=== PATIENT | female | born 1950 | race Caucasian/White ===

== ENCOUNTER → 2016-05-28 | Outpatient (REF) | payer BC ==
[~2016-05-28] MED LIST: AMBI10TA PO; CENTTAB PO; COUM2.5T11 PO; Calcium + Vit D PO; ESTRGEL TOP; IMIT100T PO; Krill Oil PO; Lactaid PO; OSTETAB3 PO; PROBCAP4 PO; TYLE650T30 PO; ULTR50TA PO; VITATAB73 PO; ZOFR4SOL PO
[2016-05-28 18:12] LABS: ALBUMIN 3.9 GM/DL (3.2-5.2); ALBUMIN/GLOBULIN RATIO 1.18 (1.00-1.93); ALKALINE PHOSPHATASE 72 U/L (45-117); ALT/SGPT 23 U/L (12-78); AMYLASE 55 U/L (25-115); ANION GAP 6 MEQ/L (8-16); AST/SGOT 22 U/L (15-37); BILIRUBIN,TOTAL 0.3 MG/DL (0.2-1.0); BLOOD UREA NITROGEN 17 MG/DL (7-18); CARBON DIOXIDE LEVEL 30 MEQ/L (21-32); CHLORIDE LEVEL 105 MEQ/L (98-107); CREATININE FOR GFR 0.73 MG/DL (0.55-1.02); GLOMERULAR FILTRATION RATE > 60.0 (>45); GLUCOSE, FASTING 84 MG/DL (80-110); POTASSIUM SERUM 3.9 MEQ/L (3.5-5.1); SODIUM LEVEL 141 MEQ/L (136-145); TOTAL PROTEIN 7.2 GM/DL (6.4-8.2)
[2016-05-28 19:19] LABS: BASO % 0.3 % (0.0-1.0); EOS # 0.8 K/mm3 (0.0-0.50); EOS % 10.5 % (0.0-3.0); LARGE UNSTAINED CELL # 0.2 K/mm3 (0.0-0.4); LARGE UNSTAINED CELL % 2.2 % (0.0-4.0); LYMPH # 1.9 K/mm3 (1.5-4.5); MEAN CORPUSCULAR HEMOGLOBIN 29.5 pg (27.0-33.0); MEAN CORPUSCULAR HGB CONC 33.4 g/dl (32.0-36.5); MEAN CORPUSCULAR VOLUME 88.5 fl (80.0-96.0); MONO # 0.6 K/mm3 (0.0-0.8); MONO % 7.5 % (0.0-5.0); NEUTROPHILS # 4.1 K/mm3 (1.8-7.7); NEUTROPHILS % 55.5 % (36.0-66.0); PLATELET COUNT, AUTOMATED 273 k/mm3 (150-450); RED CELL DISTRIBUTION WIDTH 12.5 % (11.5-14.5); WHITE BLOOD COUNT 7.4 K/mm3 (4.0-10.0)
== END ==
LOC: M LABDRAW1 17:01
PROVIDERS: ATTEND Emergency Medicine
DX: R10.11 Right upper quadrant pain (principal)

== ENCOUNTER → 2016-06-03 | Outpatient (REF) | payer BC ==
[2016-06-03 11:26] LABS: ALBUMIN 3.5 GM/DL (3.2-5.2); ALBUMIN/GLOBULIN RATIO 1.09 (1.00-1.93); ALKALINE PHOSPHATASE 66 U/L (45-117); ALT/SGPT 23 U/L (12-78); ANION GAP 4 MEQ/L (8-16); AST/SGOT 21 U/L (15-37); BILIRUBIN,TOTAL 0.4 MG/DL (0.2-1.0); BLOOD UREA NITROGEN 18 MG/DL (7-18); CALCIUM LEVEL 8.4 MG/DL (8.8-10.2); CARBON DIOXIDE LEVEL 31 MEQ/L (21-32); CHLORIDE LEVEL 105 MEQ/L (98-107); CHOLESTEROL LEVEL 154 MG/DL (<200); CREATININE FOR GFR 0.78 MG/DL (0.55-1.02); GLOMERULAR FILTRATION RATE > 60.0 (>45); GLUCOSE, FASTING 80 MG/DL (80-110); SODIUM LEVEL 140 MEQ/L (136-145); TOTAL PROTEIN 6.7 GM/DL (6.4-8.2); TRIGLYCERIDES LEVEL 29 MG/DL (<150)
== END ==
LOC: M LABDRAW1 10:37
PROVIDERS: ATTEND Emergency Medicine
DX: Z00.00 Encounter for general adult medical examination without abnormal findings (principal); K58.9 Irritable bowel syndrome, unspecified

== ENCOUNTER → 2016-07-28 | Outpatient (CLI) | payer BC ==
[~2016-07-28] MED LIST changes: +KRIL1CAP6 PO; +PEPCCHW3 PO
--- NOTE | 2016-07-28 10:25 | REP ---
Hepatobiliary scan and gallbladder ejection fraction: History: Right upper quadrant pain. Technique: 6.1 mCi of technetium-99m mebrofenin was injected and sequential anterior images are acquired. 65 minutes after the mebrofenin injection, the patient consumed 8 ounces Ensure and an additional 60 minutes of imaging was acquired. Regions of interest are plotted around the gallbladder. Findings: The initial hepatocellular parenchymal uptake phase is normal and homogeneous. Intra- and extra-hepatic bile ducts and duodenum are labeled by the 10 -minute image. The gallbladder is first labeled on the 15 -minute image. There is normal washout from the liver parenchyma into the gallbladder and small intestine on subsequent images. The gallbladder ejection fraction is 87 %. Values greater than 35 % are considered normal with this technique. Impression: Normal hepatobiliary scan and normal gallbladder ejection fraction. Signed by Solis Meléndez MD 07/28/2016 10:16 A
== END ==
LOC: M RAD 07:36
PROVIDERS: ATTEND Surgery
DX: R10.11 Right upper quadrant pain (principal)

== ENCOUNTER 2016-10-14 07:34 | Outpatient (CLI) | payer BC ==
[~2016-10-14] VITALS: Ht 147.3 cm; Wt 49.9 kg
[~2016-10-14 07:34] MED LIST changes: -COUM2.5T11 PO; +COUM2.5T17 PO; +FISH1000 PO; +LINZ290C PO; +MIRA3350 PO; +NS 1,000 ML IV SCH; -ULTR50TA PO; +ULTR50TA8 PO
[2016-10-14] MEDS ORDERED: PROPOFOL 500 MG/50 ML VIAL As Ordered ONE (07:58)
[2016-10-14] MEDS ORDERED: LIDOCAINE 2% INJ 100 MG/5 ML SDV (FOR ANES.) As Ordered ONE (08:25)
[2016-10-14] MEDS ORDERED: ONDANSETRON 4MG/2ML VIAL (J2405) As Ordered ONE (08:25)
[2016-10-14] MEDS ORDERED: PHENYLephrine HCL 500 MCG/5 ML (100MCG/ML) SYRINGE (J2370) As Ordered ONE (08:31)
--- NOTE | 2016-10-14 09:16 | ROOR ---
Patient Name: Nighat Turner Procedure Date: 10/14/2016 8:15 AM Date of : 1950 Age: 66 Room: [facility] Gender: Female Note Status: Finalized Procedure: Upper GI endoscopy Indications: Epigastric abdominal pain Providers: Shawn Davalos MD Referring MD: JAILYN ORTIZ MD Requesting Provider: Medicines: Monitored Anesthesia Care Complications: No immediate complications. Procedure: Pre-Anesthesia Assessment: - Prior to the procedure, a History and Physical was performed, and patient medications and allergies were reviewed. The patient is competent. The risks and benefits of the procedure and the sedation options and risks were discussed with the patient. All questions were answered and informed consent was obtained. Patient identification and proposed procedure were verified by the physician, the nurse and the vending machine filler in the procedure room. Mental Status Examination: alert and oriented. Airway Examination: normal oropharyngeal airway and neck mobility. Respiratory Examination: clear to auscultation. CV Examination: normal. Prophylactic Antibiotics: The patient does not require prophylactic antibiotics. Prior Anticoagulants: The patient has taken no previous anticoagulant or antiplatelet agents. ASA Grade Assessment: II - A patient with mild systemic disease. After reviewing the risks and benefits, the patient was deemed in satisfactory condition to undergo the procedure. The anesthesia plan was to use monitored anesthesia care (MAC). Immediately prior to administration of medications, the patient was re-assessed for adequacy to receive sedatives. The heart rate, respiratory rate, oxygen saturations, blood pressure, adequacy of pulmonary ventilation, and response to care were monitored throughout the procedure. The physical status of the patient was re-assessed after the procedure. The Endoscope was introduced through the mouth, and advanced to the second part of duodenum. The upper GI endoscopy was accomplished without difficulty. The patient tolerated the procedure fairly well. Findings: A small hiatal hernia was present. Estimated blood loss: none. The Z-line was regular and was found 39 cm from the incisors. The [Site] was normal. Striped mildly erythematous mucosa without bleeding was found in the prepyloric region of the stomach. Biopsies were taken with a cold forceps for Helicobacter pylori testing. Estimated blood loss was minimal. Impression: - Small hiatal hernia. - Z-line regular, 39 cm from the incisors. - Normal [Site]. - Erythematous mucosa in the prepyloric region of the stomach. Biopsied. Recommendation: - Discharge patient to home (ambulatory). - Continue present medications. Shawn Davalos MD Shawn Davalos MD 10/14/2016 9:16:08 AM This report has been signed electronically. Number of Addenda: 0 Note Initiated On: 10/14/2016 8:15 AM Estimated Blood Loss: Estimated blood loss was minimal.
--- NOTE | 2016-10-14 09:20 | ROOR ---
Patient Name: Nighat Turner Procedure Date: 10/14/2016 8:16 AM Date of : 1950 Age: 66 Room: [facility] Gender: Female Note Status: Finalized Procedure: Colonoscopy Indications: Epigastric abdominal pain, Constipation Providers: Shawn Davalos MD Referring MD: JAILYN ORTIZ MD Requesting Provider: Medicines: Monitored Anesthesia Care Complications: No immediate complications. Procedure: Pre-Anesthesia Assessment: - Prior to the procedure, a History and Physical was performed, and patient medications and allergies were reviewed. The patient is competent. The risks and benefits of the procedure and the sedation options and risks were discussed with the patient. All questions were answered and informed consent was obtained. Patient identification and proposed procedure were verified by the physician, the nurse and the typing section chief in the procedure room. Mental Status Examination: alert and oriented. Airway Examination: normal oropharyngeal airway and neck mobility. Respiratory Examination: clear to auscultation. CV Examination: normal. Prophylactic Antibiotics: The patient does not require prophylactic antibiotics. Prior Anticoagulants: The patient has taken no previous anticoagulant or antiplatelet agents. ASA Grade Assessment: II - A patient with mild systemic disease. After reviewing the risks and benefits, the patient was deemed in satisfactory condition to undergo the procedure. The anesthesia plan was to use monitored anesthesia care (MAC). Immediately prior to administration of medications, the patient was re-assessed for adequacy to receive sedatives. The heart rate, respiratory rate, oxygen saturations, blood pressure, adequacy of pulmonary ventilation, and response to care were monitored throughout the procedure. The physical status of the patient was re-assessed after the procedure. The Colonoscope was introduced through the anus and advanced to the hepatic flexure. The colonoscopy was technically difficult and complex due to poor bowel prep, significant looping and a tortuous colon. Successful completion of the procedure was aided by changing the patient to a supine position, using manual pressure, withdrawing and reinserting the scope and straightening and shortening the scope to obtain bowel loop reduction. The patient tolerated the procedure fairly well. The quality of the bowel preparation was fair. Findings: The perianal exam findings include non-thrombosed external hemorrhoids. The transverse colon revealed moderately excessive looping. Normal mucosa was found in the entire colon. No additional abnormalities were found on retroflexion. Impression: - Preparation of the colon was fair. - Non-thrombosed external hemorrhoids found on perianal exam. - There was significant looping of the colon. - Normal mucosa in the entire examined colon. - No specimens collected. Recommendation: - Discharge patient to home (ambulatory). Shawn Davalos MD Shawn Davalos MD 10/14/2016 9:20:10 AM This report has been signed electronically. Number of Addenda: 0 Note Initiated On: 10/14/2016 8:16 AM Estimated Blood Loss: Estimated blood loss: none.
[2016-10-14 09:49] VITALS: BP 108/71
== END 2016-10-14 09:51 | disposition home or self-care (01) ==
LOC: M OPP 07:34
PROVIDERS: ATTEND Surgery
DX: R19.4 Change in bowel habit (principal); K59.00 Constipation, unspecified; K64.4 Residual hemorrhoidal skin tags; Q43.8 Other specified congenital malformations of intestine; R10.11 Right upper quadrant pain; R10.13 Epigastric pain; R14.0 Abdominal distension (gaseous); K44.9 Diaphragmatic hernia without obstruction or gangrene; K31.89 Other diseases of stomach and duodenum; K58.9 Irritable bowel syndrome, unspecified; M19.90 Unspecified osteoarthritis, unspecified site; R11.10 Vomiting, unspecified; M25.60 Stiffness of unspecified joint, not elsewhere classified; G43.909 Migraine, unspecified, not intractable, without status migrainosus; I25.10 Atherosclerotic heart disease of native coronary artery without angina pectoris; F41.9 Anxiety disorder, unspecified; F32.9 Major depressive disorder, single episode, unspecified; Z87.891 Personal history of nicotine dependence; Z88.1 Allergy status to other antibiotic agents; Z91.011 Allergy to milk products; Z88.0 Allergy status to penicillin; Z79.899 Other long term (current) drug therapy; Z80.0 Family history of malignant neoplasm of digestive organs; Z80.41 Family history of malignant neoplasm of ovary; Z80.1 Family history of malignant neoplasm of trachea, bronchus and lung; Z80.8 Family history of malignant neoplasm of other organs or systems
CPT/HCPCS: 43239; 45378; 88305; J2370; J2405

== ENCOUNTER → 2018-12-07 | Outpatient (REF) | payer BC ==
[~2018-12-07] MED LIST changes: -NS 1,000 ML IV SCH
[2018-12-07 12:58] LABS: BASO # 0.1 10^3/uL (0.0-0.2); BASO % 1.2 % (0.0-1.0); EOS # 0.5 10^3/uL (0.0-0.5); EOS % 8.6 % (0.0-3.0); HEMOGLOBIN 13.1 g/dl (12.0-15.5); LYMPH # 1.2 10^3/uL (1.5-5.0); MEAN CORPUSCULAR HGB CONC 32.8 g/dl (32.0-36.5); MEAN CORPUSCULAR VOLUME 91.7 fl (80.0-96.0); MONO # 0.9 10^3/uL (0.0-0.8); MONO % 15.2 % (0.0-5.0); NEUTROPHILS # 3.4 10^3/uL (1.5-8.5); NEUTROPHILS % 55.8 % (36.0-66.0); PLATELET COUNT, AUTOMATED 247 10^3/uL (150-450); RED BLOOD COUNT 4.36 10^6/uL (4.00-5.40); WHITE BLOOD COUNT 6.1 10^3/uL (4.0-10.0)
[2018-12-07 13:25] LABS: ALBUMIN 3.4 GM/DL (3.2-5.2); ALT/SGPT 132 U/L (12-78); BILIRUBIN,TOTAL 0.3 MG/DL (0.2-1.0); BLOOD UREA NITROGEN 14 MG/DL (7-18); CALCIUM LEVEL 8.8 MG/DL (8.8-10.2); CARBON DIOXIDE LEVEL 29 MEQ/L (21-32); CHLORIDE LEVEL 103 MEQ/L (98-107); CHOLESTEROL LEVEL 154 MG/DL (<200); CHOLESTEROL RISK RATIO 1.974 (<5); CREATININE FOR GFR 0.76 MG/DL (0.55-1.30); FREE T4 1.14 NG/DL (0.76-1.46); GLOMERULAR FILTRATION RATE > 60.0 (>45); GLUCOSE, FASTING 84 MG/DL (70-100); HDL CHOLESTEROL 78 MG/DL (>40); LDL CHOLESTEROL 67 MG/DL (<100); NON-HDL-C 76 MG/DL; POTASSIUM SERUM 4.1 MEQ/L (3.5-5.1); SODIUM LEVEL 140 MEQ/L (136-145); TOTAL 25(OH) VITAMIN D 55.1 NG/ML (30.0-100.0); TRIGLYCERIDES LEVEL 47 MG/DL (<150)
== END ==
LOC: M LABDRAW1 11:59
PROVIDERS: ATTEND Physician Assistant
DX: E78.2 Mixed hyperlipidemia (principal); E03.9 Hypothyroidism, unspecified; E55.9 Vitamin D deficiency, unspecified

== ENCOUNTER → 2019-09-07 | Outpatient (CLI) | payer BC ==
[2019-09-07 17:54] LABS: BASO # 0.1 10^3/uL (0.0-0.2); BASO % 0.9 % (0.0-1.0); EOS # 0.2 10^3/uL (0.0-0.5); EOS % 3.1 % (0.0-3.0); HEMATOCRIT 40.3 % (36.0-47.0); HEMOGLOBIN 13.2 g/dl (12.0-15.5); LYMPH % 29.7 % (24.0-44.0); MEAN CORPUSCULAR HEMOGLOBIN 29.2 pg (27.0-33.0); MEAN CORPUSCULAR HGB CONC 32.8 g/dl (32.0-36.5); MEAN CORPUSCULAR VOLUME 89.2 fl (80.0-96.0); MONO # 0.8 10^3/uL (0.0-0.8); MONO % 11.6 % (0.0-5.0); NEUTROPHILS # 3.7 10^3/uL (1.5-8.5); NEUTROPHILS % 54.6 % (36.0-66.0); PLATELET COUNT, AUTOMATED 280 10^3/uL (150-450); RED BLOOD COUNT 4.52 10^6/uL (4.00-5.40); WHITE BLOOD COUNT 6.7 10^3/uL (4.0-10.0)
[2019-09-07 18:08] LABS: C REACTIVE PROTEIN QUANTITATIV < 0.30 MG/DL (0.00-0.30); URIC ACID 3.8 MG/DL (2.6-6.0)
[2019-09-07 20:22] LABS: ERYTHROCYTE SEDIMENTATION RATE 16 mm/hr (0-30)
== END ==
LOC: M PLALAB 15:23
PROVIDERS: ATTEND Physician Assistant
DX: M25.561 Pain in right knee (principal)

== ENCOUNTER → 2019-10-17 | Outpatient (REF) | payer BC ==
[~2019-10-17] MED LIST changes: +ESTR0.059 TD; +PANT40TA29 PO
== END ==
LOC: M LAB REF 11:20
PROVIDERS: ATTEND Orthopaedic Surgery
DX: M67.441 Ganglion, right hand (principal)

== ENCOUNTER → 2019-11-15 | Outpatient (CLI) | payer OTHER ==
--- NOTE | 2019-12-12 07:12 | REP ---
TRIPLE PHASE BONE SCAN OF THE KNEES HISTORY: Rule out loosening of knee prosthesis. TECHNIQUE: Following the intravenous administration of 21.9 mCi Technetium-99m MDP, the patients knees are imaged in the flow phase in the anterior and posterior projections. FINDINGS: There is symmetrical blood flow. Immediate blood pool on three hour delayed images are performed in various projections. Photopenic knee prosthesis is noted on the right. There is mild increased blood pooling at the interface between the prosthesis and adjacent bone. There is also increased delayed osseous uptake in the distal end of the right femur and proximal end of the right tibia at the interface between the metallic prosthesis components and upper [place] bone. No abnormal uptake is seen involving the left knee. IMPRESSION: Increased activity in the osseous structures adjacent to the right knee prosthesis could indicate some degree of loosening. MTDD
== END ==
LOC: M RAD 10:38
PROVIDERS: ATTEND Physician Assistant
DX: Z96.651 Presence of right artificial knee joint (principal)
CPT/HCPCS: 78315; A9503

== ENCOUNTER 2019-12-23 14:18 | Emergency (ER) | payer BC, OTHER ==
[~2019-12-23] VITALS: Ht 147.3 cm; Wt 55.1 kg
[~2019-12-23 14:18] MED LIST changes: -ESTR0.059 TD; -PANT40TA29 PO
[2019-12-23] MEDS ORDERED: ESTR0.059 TD (14:52)
[2019-12-23] MEDS ORDERED: PANT40TA29 PO (14:52)
[2019-12-23 16:04] VITALS: BP 140/88
== END 2019-12-23 16:20 | disposition home or self-care (01) ==
LOC: M ED 14:18
DX: S01.81XA Laceration without foreign body of other part of head, initial encounter (principal); W22.8XXA Striking against or struck by other objects, initial encounter; Y92.009 Unspecified place in unspecified non-institutional (private) residence as the place of occurrence of the external cause; Y93.9 Activity, unspecified; Z88.0 Allergy status to penicillin; Z88.1 Allergy status to other antibiotic agents; Z79.899 Other long term (current) drug therapy

== ENCOUNTER → 2020-01-05 | Outpatient (CLI) | payer BC ==
[~2020-01-05] MED LIST changes: +ESTR0.059 TD; +PANT40TA29 PO
[2020-01-05 10:32] LABS: BASO # 0.1 10^3/uL (0.0-0.2); BASO % 1.2 % (0.0-1.0); EOS # 0.1 10^3/uL (0.0-0.5); EOS % 2.3 % (0.0-3.0); HEMATOCRIT 41.7 % (36.0-47.0); HEMOGLOBIN 13.6 g/dl (12.0-15.5); LYMPH # 2.1 10^3/uL (1.5-5.0); LYMPH % 36.5 % (24.0-44.0); MEAN CORPUSCULAR HEMOGLOBIN 29.2 pg (27.0-33.0); MEAN CORPUSCULAR HGB CONC 32.6 g/dl (32.0-36.5); MEAN CORPUSCULAR VOLUME 89.7 fl (80.0-96.0); MONO # 0.7 10^3/uL (0.0-0.8); MONO % 12.2 % (0.0-5.0); NEUTROPHILS # 2.7 10^3/uL (1.5-8.5); NEUTROPHILS % 47.6 % (36.0-66.0); PLATELET COUNT, AUTOMATED 294 10^3/uL (150-450); RED BLOOD COUNT 4.65 10^6/uL (4.00-5.40); WHITE BLOOD COUNT 5.6 10^3/uL (4.0-10.0)
[2020-01-05 11:00] LABS: ALBUMIN 3.6 GM/DL (3.2-5.2); ALT/SGPT 29 U/L (12-78); BILIRUBIN,TOTAL 0.4 MG/DL (0.2-1.0); BLOOD UREA NITROGEN 15 MG/DL (7-18); CALCIUM LEVEL 9.1 MG/DL (8.8-10.2); CARBON DIOXIDE LEVEL 29 MEQ/L (21-32); CHLORIDE LEVEL 105 MEQ/L (98-107); CHOLESTEROL LEVEL 207 MG/DL (<200); CHOLESTEROL RISK RATIO 1.725 (<5); CREATININE FOR GFR 0.72 MG/DL (0.55-1.30); FREE T4 1.12 NG/DL (0.76-1.46); GLOMERULAR FILTRATION RATE > 60.0 (>45); GLUCOSE, FASTING 76 MG/DL (70-100); HDL CHOLESTEROL 120 MG/DL (>40); LDL CHOLESTEROL 79 MG/DL (<100); NON-HDL-C 87 MG/DL; SODIUM LEVEL 139 MEQ/L (136-145); TOTAL PROTEIN 7.4 GM/DL (6.4-8.2); TRIGLYCERIDES LEVEL 40 MG/DL (<150)
== END ==
LOC: M PLALAB 08:37
PROVIDERS: ATTEND Nurse Practitioner Family
DX: Z00.00 Encounter for general adult medical examination without abnormal findings (principal); Z79.899 Other long term (current) drug therapy

== ENCOUNTER 2020-11-20 14:18 | Inpatient (IN) | payer BC ==
[~2020-11-20] VITALS: Ht 147.3 cm; Wt 49.8 kg
[2020-11-20 16:53] LABS: BASO % 0.5 % (0.0-1.0); HEMATOCRIT 40.5 % (36.0-47.0); HEMOGLOBIN 13.6 g/dl (12.0-15.5); LYMPH # 0.7 10^3/uL (1.5-5.0); LYMPH % 10.2 % (24.0-44.0); MEAN CORPUSCULAR HEMOGLOBIN 29.1 pg (27.0-33.0); MEAN CORPUSCULAR HGB CONC 33.6 g/dl (32.0-36.5); MEAN CORPUSCULAR VOLUME 86.5 fl (80.0-96.0); MONO # 0.3 10^3/uL (0.0-0.8); MONO % 4.2 % (2.0-8.0); NEUTROPHILS # 5.5 10^3/uL (1.5-8.5); NEUTROPHILS % 83.9 % (36.0-66.0); PLATELET COUNT, AUTOMATED 306 10^3/uL (150-450); RED BLOOD COUNT 4.68 10^6/uL (4.00-5.40); WHITE BLOOD COUNT 6.5 10^3/uL (4.0-10.0)
--- NOTE | 2020-11-20 17:02 | REP ---
INDICATION: DYSPNEA/COUGH. COMPARISON: Comparison chest x-ray June 18, 2014. TECHNIQUE: Portable upright AP chest radiograph. FINDINGS: There are bilateral lower lobe infiltrates at the lung bases. Some platelike atelectatic changes are also noted in the left. Heart size is borderline. The aorta is tortuous. There is a dextroconvex curve in the lower thoracic and upper lumbar spine. Pulmonary vasculature is not increased. IMPRESSION: Bibasilar infiltrates consistent with pneumonia. <Electronically signed by Naldo Meléndez > 11/20/20 [id number]
[2020-11-20 17:25] LABS: ALT/SGPT 30 U/L (12-78); BILIRUBIN,DIRECT 0.1 MG/DL (0.0-0.2); BILIRUBIN,TOTAL 0.3 MG/DL (0.2-1.0); BLOOD UREA NITROGEN 13 MG/DL (7-18); CALCIUM LEVEL 9.1 MG/DL (8.8-10.2); CARBON DIOXIDE LEVEL 29 MEQ/L (21-32); CHLORIDE LEVEL 105 MEQ/L (98-107); CK-MB VALUE MASS 1.3 NG/ML (<3.6); CPK CREATINE PHOSPHOKINASE 91 U/L (26-192); CREATININE FOR GFR 0.62 MG/DL (0.55-1.30); GLOMERULAR FILTRATION RATE > 60.0 (>45); GLUCOSE, FASTING 144 MG/DL (70-100); MB/CK RELATIVE INDEX 1.43 (< OR =4); NT-PRO BNP 333 PG/ML (<125); SODIUM LEVEL 140 MEQ/L (136-145); THYROID STIMULATING HORMONE 0.164 uIU/ML (0.358-3.740); TROPONIN I < 0.02 NG/ML (< 0.10)
[2020-11-20] MEDS ORDERED: XALA0.007 OU (17:28)
[2020-11-20] MEDS ORDERED: AZIT-12 PO (17:28)
[2020-11-20] MEDS ORDERED: TESS100C PO (17:28)
[2020-11-20] MEDS ORDERED: HOME MED LIST COMPLETE! XX SCH (17:30)
[2020-11-20] MEDS ORDERED: dexameTHASONE 20MG/5ML VIAL (J1100 PER 1MG) IV ONE (18:05)
--- NOTE | 2020-11-20 18:48 | HPEPDOC ---
General Date of Admission November 20, 2020 Date of Service: Nov 20, 2020 Chief Complaint The patient is a 70-year-old female admitted with a reason for visit of Cough/ Covid +. History of Present Illness Mrs. Turner is a 70-year-old female with history of smoking who is here for cough and shortness of breath. Patient tells me that she is unvaccinated. She was contacted by [facility] on 11/09/2020 as patient and her daughter (Nighat Liao) were exposed to Covid. They went to go get tested on 11/10/2020. Both tested positive. On that day, they started to have symptoms. Patient had m alaise, fatigue, loss of taste, and a headache that lasted for days. Headache is now resolved. She continued to have a dry cough and shortness of breath. She was more concerned about her daughter as she is having nausea and vomiting. She came to the ER with her daughter. While in the ED, patient desaturated down to 89% at room air. Patient required 2 L of oxygen. Patient's chest x-ray demonstrates bibasilar infiltrates consistent with pneumonia. Patient will be admitted for hypoxia associate with Covid pneumonia. Home Medications Scheduled Azithromycin (Azithromycin) 250 Mg Tablet, 250 MG PO DAILY, (Reported) FOR 5 DAYS, STARTED 11/19 Estradiol (Estradiol) 0.05 Mg/24 Hr Patch.tdwk, 1 PATCH TD QWEEK, (Reported) APPLIED TO RIGHT BUTTOCKS Latanoprost (Xalatan) 0.005% 2.5ML Drops, 1 DROP OU QHS, (Reported) Linaclotide (Linzess) 290 Mcg Cap, 290 MCG PO DAILY, (Reported) Pantoprazole Sodium (Pantoprazole Sodium) 40 Mg Tablet.dr, 40 MG PO QPM, (Reported) Zolpidem Tartrate (Ambien) 10 Mg Tab, 10 MG PO QHS, (Reported) Scheduled PRN Benzonatate (Tessalon Perle) 100 Mg Capsule, 200 MG PO Q8H PRN for COUGH, (Reported) Allergies Coded Allergies: Milk Containing Products (Verified Allergy, Unknown, 12/23/19) Cephalosporins (Verified Adverse Reaction, Unknown, rash, 12/23/19) Penicillins (Verified Adverse Reaction, Unknown, rash, 12/23/19) Tetracyclines (Verified Adverse Reaction, Unknown, hives, 12/23/19) Past Medical History Medical History 1. Anxiety and depression 2. Cataracts Surgical History 1. Cataract surgery 2. Right knee replacement 3. Hysterectomy 4. Foot surgery 5. Tonsillectomy Family History Father: Per patient no known medical history. Still alive at the age of 91 Mother: , history of ILD Social History * Smoker: former Smoker Alcohol: Denies Drugs: denies A-FIB/CHADSVASC A-FIB History Current/History of A-Fib/PAF?: No Review of Systems Constitutional: Denies: Chills, Fever Eyes: Denies: Vision change ENT: Denies: Sore Throat Skin: Denies: Rash Pulmonary: Reports: Dyspnea, Cough Cardiovascular: Reports: Other Symptoms (Chest tightness when coughing) Gastrointestinal: Denies: Abdominal Pain, Diarrhea Genitourinary: Denies: Dysuria Hematologic: Denies: Bruising Neurological: Denies: Numbness Psych: Reports: Anxiety Physical Examination General Exam: Positive: Alert, Cooperative Eye Exam: Positive: EOMI; Negative: Sclera icteric ENT Exam: Positive: Atraumatic Neck Exam: Positive: Supple Chest Exam: Positive: Diminished Heart Exam: Positive: Rate Normal, Regular Rhythm Abdomen Exam: Positive: Normal bowel sounds, Soft; Negative: Tenderness Extremity Exam: Negative: Edema Neuro Exam: Positive: Normal Speech Psych Exam: Positive: Mental status NL, Anxiety Vital Signs Vital Signs Date Time Temp Pulse Resp B/P (MAP) Pulse Ox O2 Delivery O2 Flow Rate FiO2 11/20/20 18:30 98.7 71 23 147/82 (103) 97 11/20/20 15:30 Nasal Cannula 2.0 Laboratory Data Labs 24H Laboratory Tests 2 11/20/20 16:39: Immature Granulocyte % (Auto) 1.2, Neutrophils (%) (Auto) 83.9H, Lymphocytes (%) (Auto) 10.2L, Monocytes (%) (Auto) 4.2, Eosinophils (%) (Auto) 0.0, Basophils (%) (Auto) 0.5, Neutrophils # (Auto) 5.5, Lymphocytes # (Auto) 0.7L, Monocytes # (Auto) 0.3, Eosinophils # (Auto) 0.0, Basophils # (Auto) 0.0, Nucleated Red Blood Cells % (auto) 0.0, Anion Gap 6L, Glomerular Filtration Rate > 60.0, Calcium Level 9.1, Total Bilirubin 0.3, Direct Bilirubin 0.1, Aspartate Amino Transf (AST/SGOT) 33, Alanine Aminotransferase (ALT/SGPT) 30, Alkaline Phosphatase 66, Total Creatine Kinase 91, Creatine Kinase MB 1.3, Creatine Kinase MB Relative Index 1.43, Troponin I < 0.02, SA-Vlg-X-Type Natriuretic Peptide 333H, Total Protein 7.0, Albumin 3.0L, Albumin/Globulin Ratio 0.8L, Thyroid Stimulating Hormone (TSH) 0.164L 11/20/20 17:16: Influenza A Immunofluorescence NEGATIVE, Influenza B Immunofluorescence NEGATIVE, SARS Antigen (LFIA) POSITIVEH 11/20/20 17:20: 11/20/20 17:21: Lactic Acid Level 1.2 CBC/BMP Laboratory Tests 11/20/20 16:39 Microbiology Microbiology 11/20/20 Blood Culture, Received Pending 11/20/20 Blood Culture, Received Pending Assessment/Plan Mrs. Turner is a 70-year-old female with history of smoking who is here for cough and shortness of breath. She is unvaccinated. Patient and patient's daughter had a Covid exposure and was notified on 11/09/2020. Patient tested positive and began to have symptoms on 11/10/2020. Patient was admitted for hypoxia secondary to Covid pneumonia Plan / VTE VTE Prophylaxis Ordered?: Yes Plan Plan 1. Hypoxia associate with Covid pneumonia At room air patient oxygen saturation dropped to 89% Start IV steroids, IV antibiotics, and remdesivir Ordered for procalcitonin. If negative can de-escalate antibiotics. At this time will start with levofloxacin due to patient's allergies Levofloxacin day 1 2. Cataracts Continue latanoprost 3. Insomnia Substitute zolpidem for Rozerem 4. GERD Continue pantoprazole 5. DVT prophylaxis Aspirin and Lovenox ALVARADO ABRAHAM DO Nov 20, 2020 18:48
[2020-11-20 18:49] LABS: INR 0.91; PARTIAL THROMBOPLASTIN TIME 28.2 SECONDS (25.9-37.0); PROTHROMBIN TIME 12.6 SECONDS (12.7-14.5)
[2020-11-20] MEDS ORDERED: BENZONATATE 100 MG CAP PO PRN (18:50)
[2020-11-20 18:52] LABS: D-DIMER QUANT 534.38 ng/ml (<500)
[2020-11-20 19:28] LABS: C REACTIVE PROTEIN QUANTITATIV 4.19 MG/DL (0.00-0.30); FERRITIN 339 NG/ML (8-252); LDH LACTATE DEHYDROGENASE 392 U/L (84-246); MAGNESIUM LEVEL 2.3 MG/DL (1.8-2.4)
[2020-11-20] MEDS ORDERED: LevoFLOXacin IV 750 MG in IV 1 EA IV ONE (19:30)
[2020-11-20 21:00] VITALS: BP 156/62
[2020-11-20] MEDS ORDERED: RAMELTEON 8 MG TAB (ROZEREM) PO SCH (21:00)
[2020-11-20] MEDS: PANTOPRAZOLE 40MG TAB (PROTONIX) PO SCH (21:24)
[2020-11-20 22:00] VITALS: O2SAT 94
[2020-11-20] MEDS ORDERED: REMDESIVIR 200 MG in NS 250 ML IV ONE (22:00)
[2020-11-20] MEDS: LATANOPROST 0.005% OPHTH SOLN 2.5 ML OU SCH (22:26)
[2020-11-21] VITALS: BP 143/82; O2SAT 94
[2020-11-21] MEDS ORDERED: SODIUM CHLORIDE 0.9% INJ 10 ML SYR IV ONE
[2020-11-21 04:00] VITALS: BP 117/69; O2SAT 91
--- NOTE | 2020-11-21 06:22 | ECGEPIP ---
[facility] - ED Test Date: 2020-11-20 Pat Name: KERLINE MOE Department: Room: - Gender: Female [employer]: : 1950 Requested By: JULIANA Haskins Order Number: [id number] Reading MD: Ham Cabrera Measurements Intervals [place] Rate: 87 P: 55 SC: 136 QRS: -50 QRSD: 84 T: 15 QT: 360 QTc: 433 Interpretive Statements Normal sinus rhythm Left axis deviation NSTTW ABNORMALITY(S) SIMILAR TO 06/18/14 Electronically Signed on 11-21-2020 6:22:39 EDT by Ham Cabrera
[2020-11-21 06:59] LABS: HEMATOCRIT 37.3 % (36.0-47.0); HEMOGLOBIN 12.6 g/dl (12.0-15.5); MEAN CORPUSCULAR HEMOGLOBIN 28.8 pg (27.0-33.0); MEAN CORPUSCULAR HGB CONC 33.8 g/dl (32.0-36.5); MEAN CORPUSCULAR VOLUME 85.4 fl (80.0-96.0); PLATELET COUNT, AUTOMATED 294 10^3/uL (150-450); RED BLOOD COUNT 4.37 10^6/uL (4.00-5.40); WHITE BLOOD COUNT 4.4 10^3/uL (4.0-10.0)
[2020-11-21 07:24] LABS: ALBUMIN 2.4 GM/DL (3.2-5.2); ALT/SGPT 25 U/L (12-78); BILIRUBIN,DIRECT < 0.1 MG/DL (0.0-0.2); BILIRUBIN,TOTAL 0.3 MG/DL (0.2-1.0); BLOOD UREA NITROGEN 14 MG/DL (7-18); CALCIUM LEVEL 8.5 MG/DL (8.8-10.2); CARBON DIOXIDE LEVEL 27 MEQ/L (21-32); CHLORIDE LEVEL 107 MEQ/L (98-107); CREATININE FOR GFR 0.57 MG/DL (0.55-1.30); GLOMERULAR FILTRATION RATE > 60.0 (>45); GLUCOSE, FASTING 106 MG/DL (70-100); MAGNESIUM LEVEL 2.2 MG/DL (1.8-2.4); SODIUM LEVEL 140 MEQ/L (136-145); TOTAL PROTEIN 6.5 GM/DL (6.4-8.2)
[2020-11-21 08:00] VITALS: BP 105/67; O2SAT 90
[2020-11-21 08:10] LABS: ATYPICAL LYMPH 1 % (0-5); BASOPHILS 1 % (0-1); LYMPHOCYTES 16 % (16-44); MONOCYTES 6 % (0-5); NEUTROPHILS 76 % (28-66); PLATELET ESTIMATE NORMAL (NORMAL)
[2020-11-21] MEDS: ENOXAPARIN 40MG/0.4ML SYRINGE (J1650 PER 10MG) SC SCH (08:46)
[2020-11-21] MEDS: ASPIRIN 81MG ENTERIC TABLET PO SCH (08:47)
[2020-11-21] MEDS: dexameTHASONE 4 MG/ML 1ML VIAL (J1100 PER 1MG) IV SCH (08:47)
[2020-11-21 12:00] VITALS: BP 102/63; O2SAT 95
--- NOTE | 2020-11-21 13:47 | IPNPDOC ---
Subjective Date Seen The patient was seen on 11/21/20. Subjective Chief Complaint/HPI Mrs. Turner is a 70-year-old female with history of smoking who is here for cough and shortness of breath. Overnight, they were able to wean her off of oxygen. This morning, she is feeling better. Denies any chest pain and shortness of breath is improved. While talking with her and during my physical exam, she periodically drops down to 88 and states there for a minute. I gave her an option of going home with oxygen or staying here for another day to receive more remdesivir. She has opted to stay. Will order for incentive spirometer and physical therapy Objective Physical Examination General Exam: Positive: Alert, Cooperative Eye Exam: Positive: EOMI; Negative: Sclera icteric ENT Exam: Positive: Atraumatic Neck Exam: Positive: Supple Chest Exam: Positive: Diminished Heart Exam: Positive: Rate Normal, Regular Rhythm Abdomen Exam: Positive: Normal bowel sounds, Soft; Negative: Tenderness Extremity Exam: Negative: Edema Neuro Exam: Positive: Normal Speech Psych Exam: Positive: Mental status NL, Anxiety Assessment /Plan Assessment Mrs. Turner is a 70-year-old female with history of smoking who is here for cough and shortness of breath. She is unvaccinated. Patient and patient's daughter had a Covid exposure and was notified on 11/09/2020. Patient tested positive and began to have symptoms on 11/10/2020. Patient was admitted for hypoxia secondary to Covid pneumonia Plan/VTE VTE Prophylaxis Ordered?: Yes Plan 1. Hypoxia associate with Covid pneumonia At room air patient oxygen saturation dropped to 89% Continue IV steroids, IV antibiotics, and remdesivir Procalcitonin negative, will discontinue levofloxacin Added on incentive spirometer 2. Cataracts Continue latanoprost 3. Insomnia Substitute zolpidem for Rozerem 4. GERD Continue pantoprazole 5. DVT prophylaxis Aspirin and Lovenox VS, I&O, 24H, Fishbone Vital Signs/I&O Vital Signs Date Time Temp Pulse Resp B/P (MAP) Pulse Ox O2 Delivery O2 Flow Rate FiO2 11/21/20 12:00 60 17 102/63 (76) 95 Room Air 11/21/20 08:00 98.1 11/20/20 22:00 2.0 I&O- Last 24 Hours up to 6 AM 11/21/20 06:00 Intake Total 1400 ml Output Total 750 ml Balance 650 ml Laboratory Data 24H LABS Laboratory Tests 2 11/20/20 16:39: Immature Granulocyte % (Auto) 1.2, Neutrophils (%) (Auto) 83.9H, Lymphocytes (%) (Auto) 10.2L, Monocytes (%) (Auto) 4.2, Eosinophils (%) (Auto) 0.0, Basophils (%) (Auto) 0.5, Neutrophils # (Auto) 5.5, Lymphocytes # (Auto) 0.7L, Monocytes # (Auto) 0.3, Eosinophils # (Auto) 0.0, Basophils # (Auto) 0.0, Nucleated Red Blood Cells % (auto) 0.0, Anion Gap 6L, Glomerular Filtration Rate > 60.0, Calcium Level 9.1, Magnesium Level 2.3, Ferritin 339H, Total Bilirubin 0.3, Direct Bilirubin 0.1, Aspartate Amino Transf (AST/SGOT) 33, Alanine Aminotransferase (ALT/SGPT) 30, Alkaline Phosphatase 66, Lactate Dehydrogenase 392H, Total Creatine Kinase 91, Creatine Kinase MB 1.3, Creatine Kinase MB Relative Index 1.43, Troponin I < 0.02, C-Reactive Protein, Quantitative 4.19H, FG-Nlb-F-Type Natriuretic Peptide 333H, Total Protein 7.0, Albumin 3.0L, Albumin/Globulin Ratio 0.8L, Thyroid Stimulating Hormone (TSH) 0.164L 11/20/20 16:43: Procalcitonin <0.05 11/20/20 17:16: Influenza A Immunofluorescence NEGATIVE, Influenza B Immunofluorescence NEGATIVE, SARS Antigen (LFIA) POSITIVEH 11/20/20 17:20: Prothrombin Time 12.6, Prothromb Time International Ratio 0.91, Activated Partial Thromboplast Time 28.2, Fibrinogen 469H, D-Dimer, Quantitative 534.38H 11/20/20 17:21: Lactic Acid Level 1.2 11/21/20 06:43: Anion Gap 6L, Glomerular Filtration Rate > 60.0, Calcium Level 8.5L, Magnesium Level 2.2, Total Bilirubin 0.3, Direct Bilirubin < 0.1, Aspartate Amino Transf (AST/SGOT) 24, Alanine Aminotransferase (ALT/SGPT) 25, Alkaline Phosphatase 56, Total Protein 6.5, Albumin 2.4L, Albumin/Globulin Ratio 0.6L 11/21/20 06:44: Neutrophils (%) (Auto) , Nucleated Red Blood Cells % (auto) 0.0, Neutrophils 76H, Lymphocytes (Manual) 16, Monocytes (Manual) 6H, Basophils (Manual) 1, Atypical Lymphocytes 1, Red Blood Cell Morphology NORMAL, Platelet Estimate NORMAL CBC/BMP Laboratory Tests 11/20/20 16:39 11/21/20 06:43 11/21/20 06:44 Microbiology Microbiology 11/20/20 Blood Culture, Received Pending 11/20/20 Blood Culture, Received Pending ALVARADO ABRAHAM DO Nov 21, 2020 13:47
[2020-11-21] MEDS: guaiFENesin ER 600 MG TAB PO SCH ×2 (15:25→19:29)
[2020-11-21] MEDS ORDERED: ACETAMINOPHEN TAB 650MG DOSE (2X325MG) PO PRN (15:30)
[2020-11-21] MEDS ORDERED: zolPIDEM TARTRATE 5 MG TAB PO PRN (15:30)
[2020-11-21 16:00] VITALS: O2SAT 92
[2020-11-21] MEDS: PANTOPRAZOLE 40MG TAB (PROTONIX) PO SCH (19:29)
[2020-11-21] MEDS: LATANOPROST 0.005% OPHTH SOLN 2.5 ML OU SCH (19:29)
[2020-11-21 20:00] VITALS: O2SAT 94
[2020-11-21] MEDS ORDERED: LevoFLOXacin IV 750 MG in IV 1 EA IV SCH (20:00)
[2020-11-21] MEDS ORDERED: REMDESIVIR 100 MG in NS 250 ML IV SCH (22:00)
[2020-11-21] MEDS ORDERED: SODIUM CHLORIDE 0.9% INJ 10 ML SYR IV SCH (23:00)
[2020-11-22] VITALS: BP 146/81; O2SAT 94
[2020-11-22 04:00] VITALS: BP 118/60; O2SAT 93
[2020-11-22 06:08] LABS: BASO % 0.3 % (0.0-1.0); EOS % 0.1 % (0.0-3.0); HEMATOCRIT 38.4 % (36.0-47.0); HEMOGLOBIN 12.8 g/dl (12.0-15.5); LYMPH # 1.3 10^3/uL (1.5-5.0); LYMPH % 18.2 % (24.0-44.0); MEAN CORPUSCULAR HEMOGLOBIN 28.6 pg (27.0-33.0); MEAN CORPUSCULAR HGB CONC 33.3 g/dl (32.0-36.5); MEAN CORPUSCULAR VOLUME 85.7 fl (80.0-96.0); MONO # 0.6 10^3/uL (0.0-0.8); MONO % 8.2 % (2.0-8.0); NEUTROPHILS % 71.9 % (36.0-66.0); PLATELET COUNT, AUTOMATED 356 10^3/uL (150-450); RED BLOOD COUNT 4.48 10^6/uL (4.00-5.40); WHITE BLOOD COUNT 6.9 10^3/uL (4.0-10.0)
[2020-11-22 06:22] LABS: INR 1.11; PROTHROMBIN TIME 14.7 SECONDS (12.7-14.5)
[2020-11-22 06:23] LABS: PARTIAL THROMBOPLASTIN TIME 28.9 SECONDS (25.9-37.0)
[2020-11-22 06:36] LABS: ALBUMIN 2.4 GM/DL (3.2-5.2); ALT/SGPT 22 U/L (12-78); BILIRUBIN,DIRECT 0.1 MG/DL (0.0-0.2); BILIRUBIN,TOTAL 0.3 MG/DL (0.2-1.0); BLOOD UREA NITROGEN 19 MG/DL (7-18); CALCIUM LEVEL 7.9 MG/DL (8.8-10.2); CARBON DIOXIDE LEVEL 28 MEQ/L (21-32); CHLORIDE LEVEL 108 MEQ/L (98-107); CPK CREATINE PHOSPHOKINASE 32 U/L (26-192); CREATININE FOR GFR 0.66 MG/DL (0.55-1.30); FERRITIN 253 NG/ML (8-252); GLOMERULAR FILTRATION RATE > 60.0 (>45); GLUCOSE, FASTING 85 MG/DL (70-100); LDH LACTATE DEHYDROGENASE 305 U/L (84-246); MAGNESIUM LEVEL 2.5 MG/DL (1.8-2.4); NT-PRO BNP 253 PG/ML (<125); POTASSIUM SERUM 4.3 MEQ/L (3.5-5.1); SODIUM LEVEL 140 MEQ/L (136-145); TOTAL PROTEIN 5.8 GM/DL (6.4-8.2); TROPONIN I 0.04 NG/ML (< 0.10)
[2020-11-22 08:00] VITALS: BP 101/64; O2SAT 90
[2020-11-22] MEDS: guaiFENesin ER 600 MG TAB PO SCH (08:58)
[2020-11-22] MEDS: ASPIRIN 81MG ENTERIC TABLET PO SCH (08:58)
[2020-11-22] MEDS: dexameTHASONE 4 MG/ML 1ML VIAL (J1100 PER 1MG) IV SCH (08:58)
[2020-11-22] MEDS: ENOXAPARIN 40MG/0.4ML SYRINGE (J1650 PER 10MG) SC SCH (08:58)
[2020-11-22] MEDS ORDERED: MUCI600T31 PO (10:37)
[2020-11-22] MEDS ORDERED: PRED10TA2 PO (10:37)
[2020-11-22 12:00] VITALS: O2SAT 95
--- NOTE | 2020-11-22 14:28 | DS.PDOC ---
Discharge Summary General Date of Admission Nov 20, 2020 at 18:42 Date of Discharge Nov 22, 2020 Discharge Summary PROCEDURES PERFORMED DURING STAY: None ADMITTING DIAGNOSES: 1. Hypoxia secondary to Covid pneumonia 2. Cataracts 3. Insomnia 4. GERD DISCHARGE DIAGNOSES: 1. Hypoxia secondary to Covid pneumonia 2. Cataracts 3. Insomnia 4. GERD COMPLICATIONS/CHIEF COMPLAINT: Covid-19,Hypoxia,Pneumonia. HISTORY OF PRESENT ILLNESS: Mrs. Turner is a 70-year-old female with history of smoking who is here for cough and shortness of breath. Patient tells me that she is unvaccinated. She was contacted by [facility] on 11/09/2020 as patient and her daughter (Nighat Liao) were exposed to Covid. They went to go get tested on 11/10/2020. Both tested positive. On that day, they started to have symptoms. Patient had malaise, fatigue, loss of taste, and a headache that lasted for days. Headache is now resolved. She continued to have a dry cough and shortness of breath. She was more concerned about her daughter as she is having nausea and vomiting. She came to the ER with her daughter. While in the ED, patient desaturated down to 89% at room air. Patient required 2 L of oxygen. Patient's chest x-ray demonstrates bibasilar infiltrates consistent with pneumonia. Patient will be admitted for hypoxia associate with Covid pneumonia. HOSPITAL COURSE: Patient did well during hospitalization and was rapidly weaned off of oxygen. Patient's procalcitonin was negative and antibiotics were discontinued. Patient was monitored for 1 day of oxygen. Oxygen saturation maintained and she did not need oxygen. Patient's fibrinogen, lactic dehydrogenase, and ferritin are all downtrending. WBCs are not elevated. This morning, she felt anxious about going home. Patient will need rest and hydration while recovering at home. She can take Tylenol for pain or fever. Patient will be discharged home today. DISCHARGE MEDICATIONS: Please see below. ALLERGIES: Please see below. PHYSICAL EXAMINATION ON DISCHARGE: VITAL SIGNS: Please see below. GENERAL: Comfortable, in no apparent distress. HEENT: EOMI, sclera clear. NECK: Supple. RESPIRATORY: Diminished. CARDIOVASCULAR: Regular rate and rhythm. ABDOMEN: Soft, nontender, no guarding or rebound tenderness. Normal bowel sounds. MUSCLE SKELETAL: No pitting edema. NEUROLOGICAL: Normal speech. PSYCHOLOGICAL: Normal mood and affect. LABORATORY DATA: Please see below. IMAGING: Radiologist interpretation Chest x-ray Bibasilar infiltrates consistent with pneumonia. PROGNOSIS: Good ACTIVITY: As tolerated. DIET: As tolerated. DISCHARGE PLAN: Home DISPOSITION: 01 Home, Self-Care. DISCHARGE INSTRUCTIONS: 1. Follow-up with PCP in a week. 2. You may take guaifenesin for chest congestion 3. You may take Tessalon Perles for cough 4. Please take prednisone taper to help with your breathing 5. Please use incentive spirometer to help strengthen your lungs DISCHARGE CONDITION: Stable. Total time spent discharge planning, discharge summary, and medication reconciliation: 45 minutes Vital Signs/I&Os Vital Signs Date Time Temp Pulse Resp B/P (MAP) Pulse Ox O2 Delivery O2 Flow Rate FiO2 11/22/20 12:00 95 Room Air 11/22/20 08:00 98.6 94 20 101/64 (76) 11/20/20 22:00 2.0 I&O- Last 24 Hours up to 6 AM 11/22/20 05:59 Intake Total 1200 ml Output Total 925 ml Balance 275 ml Laboratory Data Labs 24H Laboratory Tests 2 11/22/20 05:41: Immature Granulocyte % (Auto) 1.3, Neutrophils (%) (Auto) 71.9H, Lymphocytes (%) (Auto) 18.2L, Monocytes (%) (Auto) 8.2H, Eosinophils (%) (Auto) 0.1, Basophils (%) (Auto) 0.3, Neutrophils # (Auto) 5.0, Lymphocytes # (Auto) 1.3L, Monocytes # (Auto) 0.6, Eosinophils # (Auto) 0.0, Basophils # (Auto) 0.0, Nucleated Red Blood Cells % (auto) 0.0, Prothrombin Time 14.7H, Prothromb Time International Ratio 1.11, Activated Partial Thromboplast Time 28.9, Fibrinogen 395, Anion Gap 4L, Glomerular Filtration Rate > 60.0, Calcium Level 7.9L, Magnesium Level 2.5H, Ferritin 253H, Total Bilirubin 0.3, Direct Bilirubin 0.1, Aspartate Amino Transf (AST/SGOT) 22, Alanine Aminotransferase (ALT/SGPT) 22, Alkaline Phosphatase 52, Lactate Dehydrogenase 305H, Total Creatine Kinase 32, Troponin I 0.04#, HL-Fas-E-Type Natriuretic Peptide 253H, Total Protein 5.8L, Albumin 2.4L, Albumin/Globulin Ratio 0.7L CBC/BMP Laboratory Tests 11/22/20 05:41 Microbiology Microbiology 11/20/20 Blood Culture - Preliminary, Resulted No growth after 24 hours . All specim... 11/20/20 Blood Culture - Preliminary, Resulted No growth after 24 hours . All specim... Discharge Medications Scheduled Estradiol (Estradiol) 0.05 Mg/24 Hr Patch.tdwk, 1 PATCH TD QWEEK, (Reported) APPLIED TO RIGHT BUTTOCKS Guaifenesin (Mucinex) 600 Mg Tab.er.12h, 600 MG PO BID Latanoprost (Xalatan) 0.005% 2.5ML Drops, 1 DROP OU QHS, (Reported) Linaclotide (Linzess) 290 Mcg Cap, 290 MCG PO DAILY, (Reported) Pantoprazole Sodium (Pantoprazole Sodium) 40 Mg Tablet.dr, 40 MG PO QPM, (Reported) Prednisone (Prednisone) 10 Mg Tablet, 10 MG PO TAPER Take 4 tabs daily x 3 days, then 3 tabs daily x 3 days, then 2 tabs daily x 3 days, then 1 tab daily x 3 days and stop Zolpidem Tartrate (Ambien) 10 Mg Tab, 10 MG PO QHS, (Reported) Scheduled PRN Benzonatate (Tessalon Perle) 100 Mg Capsule, 200 MG PO Q8H PRN for COUGH, ( Reported) Allergies Coded Allergies: Milk Containing Products (Verified Allergy, Unknown, 12/23/19) Cephalosporins (Verified Adverse Reaction, Unknown, rash, 12/23/19) Penicillins (Verified Adverse Reaction, Unknown, rash, 12/23/19) Tetracyclines (Verified Adverse Reaction, Unknown, hives, 12/23/19) ALVARADO ABRAHAM DO Nov 22, 2020 14:28
[2020-11-22 16:10] LABS: MYCOPLASMA PNEUMONIAE IgG 364 U/mL (0-99); MYCOPLASMA PNEUMONIAE IgM <770 U/mL (0-769)
== END 2020-11-22 12:35 | disposition home or self-care (01) | DRG 137 ==
LOC: M ED 14:18 → M ED INP 18:42 → M ICU 20:50
PROVIDERS: ADMIT Internal Medicine; ATTEND Internal Medicine
DX: U07.1 COVID-19 (principal); J12.82 Pneumonia due to coronavirus disease 2019; K21.9 Gastro-esophageal reflux disease without esophagitis; G47.00 Insomnia, unspecified; Z79.899 Other long term (current) drug therapy; Z88.0 Allergy status to penicillin; Z88.8 Allergy status to other drugs, medicaments and biological substances; Z91.011 Allergy to milk products; Z98.41 Cataract extraction status, right eye; Z98.42 Cataract extraction status, left eye; Z96.651 Presence of right artificial knee joint; Z87.891 Personal history of nicotine dependence

== ENCOUNTER → 2021-04-21 | Outpatient (CLI) | payer BC ==
[~2021-04-21] MED LIST changes: +AZIT-12 PO; +MUCI600T31 PO; +PRED10TA2 PO; +TESS100C PO; +XALA0.007 OU
== END ==
LOC: M WHC 14:47
PROVIDERS: ATTEND Nurse Practitioner Family
DX: Z12.31 Encounter for screening mammogram for malignant neoplasm of breast (principal); M89.9 Disorder of bone, unspecified; M85.851 Other specified disorders of bone density and structure, right thigh; M85.852 Other specified disorders of bone density and structure, left thigh

== ENCOUNTER → 2021-12-07 | Outpatient (CLI) | payer BC ==
[2021-12-07 09:18] LABS: ALBUMIN 3.6 GM/DL (3.2-5.2); ALT/SGPT 26 U/L (12-78); BILIRUBIN,TOTAL 0.4 MG/DL (0.2-1.0); BLOOD UREA NITROGEN 14 MG/DL (7-18); CALCIUM LEVEL 8.9 MG/DL (8.8-10.2); CARBON DIOXIDE LEVEL 29 MEQ/L (21-32); CHLORIDE LEVEL 105 MEQ/L (98-107); CHOLESTEROL LEVEL 192 MG/DL (<200); CHOLESTEROL RISK RATIO 1.699 (<5); CREATININE FOR GFR 0.73 MG/DL (0.55-1.30); GLOMERULAR FILTRATION RATE > 60.0 (>45); GLUCOSE, FASTING 65 MG/DL (70-100); HDL CHOLESTEROL 113 MG/DL (>40); LDL CHOLESTEROL 73 MG/DL (<100); NON-HDL-C 79 MG/DL; POTASSIUM SERUM 3.8 MEQ/L (3.5-5.1); SODIUM LEVEL 137 MEQ/L (136-145); TOTAL PROTEIN 7.8 GM/DL (6.4-8.2); TRIGLYCERIDES LEVEL 30 MG/DL (<150)
== END ==
LOC: M LAB 08:24
PROVIDERS: ATTEND Nurse Practitioner Family
DX: Z00.00 Encounter for general adult medical examination without abnormal findings (principal)

== ENCOUNTER → 2022-03-25 | Outpatient (CLI) | payer BC ==
[2022-03-25 13:35] LABS: BASO # 0.1 10^3/uL (0.0-0.2); BASO % 1.2 % (0.0-1.0); EOS # 0.2 10^3/uL (0.0-0.5); HEMATOCRIT 37.7 % (36.0-47.0); HEMOGLOBIN 12.5 g/dl (12.0-15.5); LYMPH # 1.7 10^3/uL (1.5-5.0); LYMPH % 24.9 % (24.0-44.0); MEAN CORPUSCULAR HEMOGLOBIN 29.8 pg (27.0-33.0); MEAN CORPUSCULAR HGB CONC 33.2 g/dl (32.0-36.5); MEAN CORPUSCULAR VOLUME 89.8 fl (80.0-96.0); MONO # 0.8 10^3/uL (0.0-0.8); MONO % 11.2 % (2.0-8.0); NEUTROPHILS # 4.1 10^3/uL (1.5-8.5); NEUTROPHILS % 59.4 % (36.0-66.0); PLATELET COUNT, AUTOMATED 298 10^3/uL (150-450); WHITE BLOOD COUNT 6.9 10^3/uL (4.0-10.0)
[2022-03-25 14:08] LABS: ALBUMIN 3.3 G/DL (3.2-5.2); ALKALINE PHOSPHATASE 64 U/L (46-116); ALT/SGPT 24 U/L (7.0-40); AST/SGOT 22 U/L (<34); BILIRUBIN,TOTAL 0.4 MG/DL (0.3-1.2); BLOOD UREA NITROGEN 8 MG/DL (9-23); CALCIUM LEVEL 8.8 MG/DL (8.3-10.6); CARBON DIOXIDE LEVEL 29 MMOL/L (20-31); CHLORIDE LEVEL 107 MMOL/L (98-107); CREATININE FOR GFR 0.62 MG/DL (0.55-1.30); GLOMERULAR FILTRATION RATE > 60.0 (>45); GLUCOSE, FASTING 99 MG/DL (74-106); POTASSIUM SERUM 4.1 MMOL/L (3.5-5.1); SODIUM LEVEL 142 MMOL/L (136-145); TOTAL PROTEIN 6.3 G/DL (5.7-8.2)
== END ==
LOC: M PLALAB 11:33
PROVIDERS: ATTEND Nurse Practitioner Family
DX: R19.7 Diarrhea, unspecified (principal)

== ENCOUNTER → 2022-05-28 | Outpatient (REF) | payer BC | LOC: M LAB REF 10:05 | PROVIDERS: ATTEND Nurse Practitioner Family | DX: R19.7 Diarrhea, unspecified (principal) ==

== ENCOUNTER → 2022-06-11 | Outpatient (CLI) | payer BC ==
[2022-06-11 17:47] LABS: BLOOD UREA NITROGEN 20 MG/DL (9-23); CALCIUM LEVEL 9.3 MG/DL (8.3-10.6); CARBON DIOXIDE LEVEL 32 MMOL/L (20-31); CHLORIDE LEVEL 104 MMOL/L (98-107); CREATININE FOR GFR 0.55 MG/DL (0.55-1.30); GLOMERULAR FILTRATION RATE > 60.0 (>45); GLUCOSE, FASTING 88 MG/DL (74-106); POTASSIUM SERUM 4.7 MMOL/L (3.5-5.1); SODIUM LEVEL 140 MMOL/L (136-145)
== END ==
LOC: M PLALAB 14:38
PROVIDERS: ATTEND Nurse Practitioner Family
DX: Z01.818 Encounter for other preprocedural examination (principal)

== ENCOUNTER → 2022-06-23 | Outpatient (REF) | payer BC | LOC: M LAB REF 13:09 | PROVIDERS: ATTEND Nurse Practitioner Family | DX: A04.71 Enterocolitis due to Clostridium difficile, recurrent (principal) ==

== ENCOUNTER → 2022-07-04 | Outpatient (REF) | payer BC ==
[2022-07-04 12:00] LABS: CLOSTRIDIUM DIFFICILE PCR NEGATIVE (NEGATIVE)
== END ==
LOC: M LAB REF 07:50
PROVIDERS: ATTEND Nurse Practitioner Family
DX: A04.71 Enterocolitis due to Clostridium difficile, recurrent (principal)

== ENCOUNTER → 2022-08-21 | Outpatient (CLI) | payer BC ==
[~2022-08-21] MED LIST changes: +CITRTAB18 PO; +NEPHTAB2 PO; +OCUV1CAP4 PO; +OMEG12003 PO; +ONETAB33 PO; +PROB250C PO
== END ==
LOC: M WHC 09:16
PROVIDERS: ATTEND Nurse Practitioner Family
DX: R22.2 Localized swelling, mass and lump, trunk (principal)

== ENCOUNTER → 2022-09-09 | Outpatient (CLI) | payer BC ==
[2022-09-09 16:41] LABS: BLOOD UREA NITROGEN 18 MG/DL (9-23); CREATININE FOR GFR 0.57 MG/DL (0.55-1.30); GLOMERULAR FILTRATION RATE > 60.0 (>45)
== END ==
LOC: M PLALAB 12:39
PROVIDERS: ATTEND Surgery
DX: Z01.818 Encounter for other preprocedural examination (principal)

== ENCOUNTER → 2022-09-11 | Outpatient (CLI) | payer BC ==
[~2022-09-11] MED LIST changes: +GASTROGRAFIN SOLUTION 30ML ONE; +ISOVUE-370 76% 100ML VIAL ONE
== END ==
LOC: M PLAIMG 08:43
PROVIDERS: ATTEND Surgery
DX: R10.12 Left upper quadrant pain (principal); R19.02 Left upper quadrant abdominal swelling, mass and lump
CPT/HCPCS: 74178; Q9963; Q9967

== ENCOUNTER → 2022-10-29 | Outpatient (CLI) | payer BC ==
[~2022-10-29] MED LIST changes: +DOCU100C16 PO; -GASTROGRAFIN SOLUTION 30ML ONE; -ISOVUE-370 76% 100ML VIAL ONE; +OSTETAB2 PO; +VITACAP8 PO
== END ==
LOC: M WHC 15:54
PROVIDERS: ATTEND Nurse Practitioner Family
DX: Z12.31 Encounter for screening mammogram for malignant neoplasm of breast (principal)

== ENCOUNTER 2022-11-06 08:22 | Day surgery (SDC) | payer BC ==
[~2022-11-06] VITALS: Ht 147.3 cm; Wt 48.5 kg
[~2022-11-06 08:22] MED LIST changes: +LIDOCAINE 2% 100MG/5ML SDV (FOR ANES.) As Ordered ONE; +NS 1,000 ML IV ONE; +propofoL 200 MG/20 ML VIAL As Ordered ONE
[2022-11-06 09:44] VITALS: TEMP 96.9
[2022-11-06 10:20] VITALS: BP 119/65; O2SAT 98
== END 2022-11-06 10:30 | disposition home or self-care (01) ==
LOC: M OPP 08:22
PROVIDERS: ATTEND Surgery
DX: K64.9 Unspecified hemorrhoids (principal); R19.4 Change in bowel habit; Z87.891 Personal history of nicotine dependence; Z79.899 Other long term (current) drug therapy; Z79.818 Long term (current) use of other agents affecting estrogen receptors and estrogen levels; Z88.1 Allergy status to other antibiotic agents; Z91.011 Allergy to milk products

== ENCOUNTER → 2022-12-22 | Outpatient (CLI) | payer BC ==
[~2022-12-22] MED LIST changes: -LIDOCAINE 2% 100MG/5ML SDV (FOR ANES.) As Ordered ONE; -NS 1,000 ML IV ONE; -propofoL 200 MG/20 ML VIAL As Ordered ONE
[2022-12-22 18:27] LABS: BASO # 0.1 10^3/uL (0.0-0.2); BASO % 0.7 % (0.0-1.0); EOS # 0.2 10^3/uL (0.0-0.5); EOS % 3.1 % (0.0-3.0); HEMATOCRIT 42.1 % (36.0-47.0); HEMOGLOBIN 13.8 g/dl (12.0-15.5); LYMPH # 2.5 10^3/uL (1.5-5.0); LYMPH % 33.6 % (24.0-44.0); MEAN CORPUSCULAR HEMOGLOBIN 29.3 pg (27.0-33.0); MEAN CORPUSCULAR HGB CONC 32.8 g/dl (32.0-36.5); MEAN CORPUSCULAR VOLUME 89.4 fl (80.0-96.0); MONO # 0.9 10^3/uL (0.0-0.8); MONO % 11.7 % (2.0-8.0); NEUTROPHILS # 3.8 10^3/uL (1.5-8.5); NEUTROPHILS % 50.8 % (36.0-66.0); PLATELET COUNT, AUTOMATED 326 10^3/uL (150-450); RED BLOOD COUNT 4.71 10^6/uL (4.00-5.40); WHITE BLOOD COUNT 7.4 10^3/uL (4.0-10.0)
[2022-12-22 18:46] LABS: ALKALINE PHOSPHATASE 81 U/L (46-116); ALT/SGPT 22 U/L (7.0-40); AST/SGOT 20 U/L (<34); BILIRUBIN,TOTAL 0.4 MG/DL (0.3-1.2); BLOOD UREA NITROGEN 23 MG/DL (9-23); CALCIUM LEVEL 9.9 MG/DL (8.3-10.6); CARBON DIOXIDE LEVEL 31 MMOL/L (20-31); CHLORIDE LEVEL 101 MMOL/L (98-107); CHOLESTEROL LEVEL 209 MG/DL (<200); CHOLESTEROL RISK RATIO 1.89 (<5); CREATININE FOR GFR 0.63 MG/DL (0.55-1.30); GLOMERULAR FILTRATION RATE > 60.0 (>39); GLUCOSE, FASTING 79 MG/DL (74-106); HDL CHOLESTEROL 110.2 MG/DL (>40); LDL CHOLESTEROL 86.6 MG/DL (<100); NON-HDL-C 98.8 MG/DL; POTASSIUM SERUM 4.4 MMOL/L (3.5-5.1); SODIUM LEVEL 139 MMOL/L (136-145); TOTAL PROTEIN 7.7 G/DL (5.7-8.2); TRIGLYCERIDES LEVEL 61 MG/DL (<150)
[2022-12-22 18:47] LABS: TOTAL 25(OH) VITAMIN D 50.1 NG/ML (20.0-100.0)
== END ==
LOC: M PLALAB 16:25
PROVIDERS: ATTEND Nurse Practitioner Family
DX: Z01.818 Encounter for other preprocedural examination (principal); E78.2 Mixed hyperlipidemia; E55.9 Vitamin D deficiency, unspecified; R22.2 Localized swelling, mass and lump, trunk; M41.35 Thoracogenic scoliosis, thoracolumbar region

== ENCOUNTER 2023-01-05 11:26 | Day surgery (SDC) | payer BC ==
[~2023-01-05] VITALS: Ht 147.3 cm; Wt 50.8 kg
[~2023-01-05 11:26] MED LIST changes: +UNRESOLVED CLARIFICATION ENTRY XX SCH
[2023-01-05] MEDS ORDERED: fentaNYL 250 MCG/5 ML INJECTION As Ordered ONE (12:19)
[2023-01-05] MEDS ORDERED: propofoL 200 MG/20 ML VIAL As Ordered ONE ×2 (12:19→15:30)
[2023-01-05] MEDS ORDERED: SUGAMMADEX SODIUM 500 MG/5 ML VIAL (BRIDION) As Ordered ONE ×2 (12:19→14:47)
[2023-01-05] MEDS ORDERED: ONDANSETRON 4MG 2ML VIAL As Ordered ONE (12:19)
[2023-01-05] MEDS ORDERED: ROCURONIUM BROMIDE 50MG/5ML VIAL As Ordered ONE ×2 (12:19→15:30)
[2023-01-05] MEDS ORDERED: LIDOCAINE 2% 100MG/5ML SDV (FOR ANES.) As Ordered ONE ×2 (12:19→15:30)
[2023-01-05] MEDS ORDERED: MIDAZOLAM INJ 2MG/2ML VIAL As Ordered ONE (12:20)
[2023-01-05] MEDS ORDERED: LR 1,000 ML IV SCH ×2 (12:20→15:10)
[2023-01-05] MEDS ORDERED: CelecoXIB (CeleBREX) 100 MG CAP PO ONE (13:05)
[2023-01-05] MEDS ORDERED: LIDOCAINE 1% SDV 30ML VIAL As Ordered ONE (13:13)
[2023-01-05] MEDS ORDERED: ceFAZolin 2 GM/D5W 50 ML IV BAG As Ordered ONE (13:28)
[2023-01-05] MEDS ORDERED: SCOPOLAMINE 1MG TRANSDERMAL PATCH TOP ONE (13:35)
[2023-01-05] MEDS ORDERED: ACETAMINOPHEN 1000MG 100ML IV BAG As Ordered ONE (14:10)
[2023-01-05] MEDS ORDERED: PHENYLephrine 500MCG 5ML (100MCG/ML) SYRINGE As Ordered ONE (14:10)
[2023-01-05] MEDS ORDERED: ePHEDrine SULFATE 25 MG/5 ML(5MG/ML) SYRINGE As Ordered ONE (14:10)
[2023-01-05] MEDS ORDERED: LACRILUBE (AKWA TEARS) OPHTH OINT 3.5GM As Ordered ONE (14:20)
[2023-01-05] MEDS ORDERED: ceFAZolin SOD 2 GM in IV 1 EA IV ONE (14:30)
[2023-01-05] MEDS ORDERED: HYDROmorphone HCL 2MG/ML 1ML VIAL As Ordered ONE (14:48)
[2023-01-05] MEDS ORDERED: fentaNYL 100 MCG/2 ML INJECTION IV PRN (15:10)
[2023-01-05] MEDS ORDERED: ONDANSETRON 4MG 2ML VIAL IV PRN (15:10)
[2023-01-05] MEDS ORDERED: oxyCODONE 5MG TAB PO PRN (15:10)
[2023-01-05] MEDS: HYDROMORPHONE HCL 0.5 MG/ 0.5 ML SYRINGE IV PRN ×2 (15:32→15:56)
[2023-01-05] MEDS ORDERED: METOCLOPRAMIDE INJ 10MG/2ML VIAL IV PRN (16:00)
[2023-01-05] MEDS ORDERED: NORCO, ANEXSIA 5/325MG TABLET (HYDROcodone/ACETAMINOPHEN) PO PRN (17:00)
[2023-01-05 18:30] VITALS: BP 102/57; TEMP 96.8; O2SAT 96
[2023-01-05] MEDS ORDERED: KETOROLAC 30 MG/ML 1ML VIAL IV SCH (21:00)
== END 2023-01-05 18:38 | disposition home or self-care (01) ==
LOC: M SDC 11:26
PROVIDERS: ATTEND Surgery
DX: R10.12 Left upper quadrant pain (principal); G43.909 Migraine, unspecified, not intractable, without status migrainosus; Z87.891 Personal history of nicotine dependence; F41.9 Anxiety disorder, unspecified; K21.9 Gastro-esophageal reflux disease without esophagitis; Z88.0 Allergy status to penicillin; Z88.1 Allergy status to other antibiotic agents; Z91.011 Allergy to milk products; Z79.899 Other long term (current) drug therapy
CPT/HCPCS: 49320; C9290; J0131; J0665; J1100; J1170; J2250; J2371; J2405; J2765; J3010

== ENCOUNTER → 2023-02-09 | Outpatient (REF) | payer BC ==
[~2023-02-09] MED LIST changes: -UNRESOLVED CLARIFICATION ENTRY XX SCH
[2023-02-09 19:22] LABS: BASO # 0.1 10^3/uL (0.0-0.2); BASO % 0.7 % (0.0-1.0); EOS # 0.2 10^3/uL (0.0-0.5); EOS % 2.8 % (0.0-3.0); HEMATOCRIT 38.8 % (36.0-47.0); HEMOGLOBIN 13.1 g/dl (12.0-15.5); LYMPH # 2.3 10^3/uL (1.5-5.0); MEAN CORPUSCULAR HEMOGLOBIN 29.8 pg (27.0-33.0); MEAN CORPUSCULAR HGB CONC 33.8 g/dl (32.0-36.5); MEAN CORPUSCULAR VOLUME 88.2 fl (80.0-96.0); MONO # 0.8 10^3/uL (0.0-0.8); MONO % 11.1 % (2.0-8.0); NEUTROPHILS # 3.5 10^3/uL (1.5-8.5); NEUTROPHILS % 51.3 % (36.0-66.0); PLATELET COUNT, AUTOMATED 299 10^3/uL (150-450); WHITE BLOOD COUNT 6.8 10^3/uL (4.0-10.0)
[2023-02-09 19:46] LABS: ALBUMIN 3.6 G/DL (3.2-5.2); ALKALINE PHOSPHATASE 94 U/L (46-116); ALT/SGPT 26 U/L (7.0-40); AST/SGOT 23 U/L (<34); BILIRUBIN,TOTAL 0.3 MG/DL (0.3-1.2); BLOOD UREA NITROGEN 20 MG/DL (9-23); CALCIUM LEVEL 9.2 MG/DL (8.3-10.6); CARBON DIOXIDE LEVEL 31 MMOL/L (20-31); CHLORIDE LEVEL 103 MMOL/L (98-107); CREATININE FOR GFR 0.62 MG/DL (0.55-1.30); GLOMERULAR FILTRATION RATE > 60.0 (>39); GLUCOSE, FASTING 85 MG/DL (74-106); POTASSIUM SERUM 4.8 MMOL/L (3.5-5.1); SODIUM LEVEL 142 MMOL/L (136-145)
== END ==
LOC: M PLALAB 17:46
PROVIDERS: ATTEND Nurse Practitioner Family
DX: Z01.812 Encounter for preprocedural laboratory examination (principal)

== ENCOUNTER → 2023-04-21 | Outpatient (CLI) | payer BC, MEDICARE | LOC: M PLAIMG 12:18 | PROVIDERS: ATTEND Nurse Practitioner Family | DX: M25.551 Pain in right hip (principal); M16.11 Unilateral primary osteoarthritis, right hip ==

== ENCOUNTER → 2023-04-23 | Outpatient (CLI) | payer BC | LOC: M WHC 14:32 | PROVIDERS: ATTEND Nurse Practitioner Family | DX: Z13.820 Encounter for screening for osteoporosis (principal); E55.9 Vitamin D deficiency, unspecified; M89.9 Disorder of bone, unspecified ==

== ENCOUNTER → 2023-05-31 | Outpatient (CLI) | payer BC ==
[~2023-05-31] MED LIST changes: +ISOVUE-300 61% 100ML VIAL As Ordered ONE; +LIDOCAINE 1% MDV 20ML VIAL As Ordered ONE; +TRIAMCINOLONE ACETONIDE SUSP 40MG/ML 1ML VIAL As Ordered ONE
== END ==
LOC: M RAD 12:55
PROVIDERS: ATTEND Orthopaedic Surgery
DX: M16.11 Unilateral primary osteoarthritis, right hip (principal)
CPT/HCPCS: 20610; 77002; J3301; Q9967

== ENCOUNTER → 2023-08-25 | Outpatient (CLI) | payer BC ==
[~2023-08-25] MED LIST changes: -ISOVUE-300 61% 100ML VIAL As Ordered ONE; -LIDOCAINE 1% MDV 20ML VIAL As Ordered ONE; -TRIAMCINOLONE ACETONIDE SUSP 40MG/ML 1ML VIAL As Ordered ONE
[2023-08-25 11:40] LABS: HEMATOCRIT 39.2 % (36.0-47.0); MEAN CORPUSCULAR HGB CONC 33.2 g/dl (32.0-36.5); MEAN CORPUSCULAR VOLUME 87.5 fl (80.0-96.0); PLATELET COUNT, AUTOMATED 287 10^3/uL (150-450); RED BLOOD COUNT 4.48 10^6/uL (4.00-5.40); WHITE BLOOD COUNT 6.6 10^3/uL (4.0-10.0)
[2023-08-25 11:54] LABS: ALBUMIN 3.7 G/DL (3.2-5.2); ALKALINE PHOSPHATASE 81 U/L (46-116); ALT/SGPT 21 U/L (7.0-40); AST/SGOT 14 U/L (<34); BILIRUBIN,TOTAL 0.5 MG/DL (0.3-1.2); BLOOD UREA NITROGEN 25 MG/DL (9-23); CALCIUM LEVEL 9.8 MG/DL (8.3-10.6); CARBON DIOXIDE LEVEL 26 MMOL/L (20-31); CHLORIDE LEVEL 107 MMOL/L (98-107); CREATININE FOR GFR 0.58 MG/DL (0.55-1.30); GLOMERULAR FILTRATION RATE > 60.0 (>39); GLUCOSE, FASTING 78 MG/DL (74-106); POTASSIUM SERUM 4.1 MMOL/L (3.5-5.1); SODIUM LEVEL 141 MMOL/L (136-145); TOTAL PROTEIN 7.1 G/DL (5.7-8.2)
[2023-08-25 12:00] LABS: INR 0.99; PROTHROMBIN TIME 12.8 SECONDS (12.5-14.5)
[2023-08-25 12:04] LABS: ERYTHROCYTE SEDIMENTATION RATE 46 mm/hr (0-30)
== END ==
LOC: M RAD 10:32
PROVIDERS: ATTEND Orthopaedic Surgery
DX: Z01.818 Encounter for other preprocedural examination (principal); M16.11 Unilateral primary osteoarthritis, right hip; M41.80 Other forms of scoliosis, site unspecified; R94.31 Abnormal electrocardiogram [ECG] [EKG]

== ENCOUNTER → 2023-12-30 | Outpatient (CLI) | payer BC | LOC: M WHC 15:28 | PROVIDERS: ATTEND Obstetrics & Gynecology Female Pelvic Medicine and Reconstructive Surgery | DX: Z12.31 Encounter for screening mammogram for malignant neoplasm of breast (principal) ==

== ENCOUNTER → 2024-09-19 | Outpatient (CLI) | payer BC ==
[~2024-09-19] MED LIST changes: -AMBI10TA PO; +E-Z-GAS II EFFERVESCENT PACKET (SODIUM BICARB./CITRIC ACID/SIMETHICONE) As Ordered ONE; +E-Z-HD 98% w/w 340 GM SUSP BTL As Ordered ONE; +E-Z-PAQUE 96% w/w SUSP 176 GM BTL As Ordered ONE; +ZOLP-533 PO
== END ==
LOC: M RAD 08-18 09:28
PROVIDERS: ATTEND Surgery
DX: K21.00 Gastro-esophageal reflux disease with esophagitis, without bleeding (principal); K44.9 Diaphragmatic hernia without obstruction or gangrene

== ENCOUNTER → 2025-01-16 | Outpatient (REF) | payer BC ==
[~2025-01-16] MED LIST changes: -E-Z-GAS II EFFERVESCENT PACKET (SODIUM BICARB./CITRIC ACID/SIMETHICONE) As Ordered ONE; -E-Z-HD 98% w/w 340 GM SUSP BTL As Ordered ONE; -E-Z-PAQUE 96% w/w SUSP 176 GM BTL As Ordered ONE
== END ==
LOC: M LAB REF 17:30
PROVIDERS: ATTEND Internal Medicine
DX: R10.12 Left upper quadrant pain (principal); K21.9 Gastro-esophageal reflux disease without esophagitis; Z80.0 Family history of malignant neoplasm of digestive organs

== ENCOUNTER → 2025-01-17 | Outpatient (REF) | payer BC | LOC: M LAB REF 16:45 | PROVIDERS: ATTEND Internal Medicine | DX: K21.9 Gastro-esophageal reflux disease without esophagitis (principal); R10.12 Left upper quadrant pain; Z80.0 Family history of malignant neoplasm of digestive organs ==

== ENCOUNTER → 2025-01-23 | Outpatient (CLI) | payer BC ==
[2025-01-23 18:42] LABS: ALT/SGPT 31 U/L (7.0-40); AST/SGOT 26 U/L (<34); CALCIUM LEVEL 9.1 MG/DL (8.3-10.6); CARBON DIOXIDE LEVEL 30 MMOL/L (20-31); CHLORIDE LEVEL 101 MMOL/L (98-107); CREATININE FOR GFR 0.62 MG/DL (0.55-1.30); GLOMERULAR FILTRATION RATE > 90.0 (>39); POTASSIUM SERUM 4.3 MMOL/L (3.5-5.1); SODIUM LEVEL 140 MMOL/L (136-145)
== END ==
LOC: M PLALAB 16:02
PROVIDERS: ATTEND Internal Medicine
DX: R10.12 Left upper quadrant pain (principal); K21.9 Gastro-esophageal reflux disease without esophagitis

== ENCOUNTER → 2025-01-25 | Outpatient (CLI) | payer BC ==
[~2025-01-25] MED LIST changes: +ISOVUE-370 76% 100 ML VIAL ONE
== END ==
LOC: M PLAIMG 10:27
PROVIDERS: ATTEND Internal Medicine
DX: R10.12 Left upper quadrant pain (principal); K21.9 Gastro-esophageal reflux disease without esophagitis; I10 Essential (primary) hypertension
CPT/HCPCS: 74177; Q9967

== ENCOUNTER → 2025-02-25 | Outpatient (CLI) | payer BC ==
[~2025-02-25] MED LIST changes: -ISOVUE-370 76% 100 ML VIAL ONE
[2025-02-25 09:54] LABS: BASO # 0.1 10^3/uL (0.0-0.2); BASO % 1.1 % (0.0-1.0); EOS # 0.2 10^3/uL (0.0-0.5); EOS % 3.2 % (0.0-3.0); LYMPH # 1.9 10^3/uL (1.5-5.0); LYMPH % 39.2 % (24.0-44.0); MONO # 0.8 10^3/uL (0.0-0.8); MONO % 16.6 % (2.0-8.0); NEUTROPHILS # 1.9 10^3/uL (1.5-8.5); NEUTROPHILS % 39.7 % (36.0-66.0); PLATELET COUNT, AUTOMATED 325 10^3/uL (150-450)
[2025-02-25 10:25] LABS: INR 1.01
[2025-02-25 10:30] LABS: ALT/SGPT 31 U/L (7.0-40); AST/SGOT 29 U/L (<34); CALCIUM LEVEL 9.6 MG/DL (8.3-10.6); CARBON DIOXIDE LEVEL 29 MMOL/L (20-31); CHLORIDE LEVEL 102 MMOL/L (98-107); CHOLESTEROL LEVEL 197 MG/DL (<200); CHOLESTEROL RISK RATIO 1.88 (<5); CREATININE FOR GFR 0.68 MG/DL (0.55-1.30); GLOMERULAR FILTRATION RATE > 90.0 (>39); LDL CHOLESTEROL 86.6 MG/DL (<100); NON-HDL-C 92.6 MG/DL; POTASSIUM SERUM 4.1 MMOL/L (3.5-5.1); SODIUM LEVEL 140 MMOL/L (136-145); TRIGLYCERIDES LEVEL 30 MG/DL (<150)
[2025-02-25 10:32] LABS: TOTAL 25(OH) VITAMIN D 80.4 NG/ML (20.0-100.0)
== END ==
LOC: M LAB 09:10
PROVIDERS: ATTEND Nurse Practitioner Family
DX: Z00.00 Encounter for general adult medical examination without abnormal findings (principal); E78.2 Mixed hyperlipidemia; E11.9 Type 2 diabetes mellitus without complications; Z01.818 Encounter for other preprocedural examination